=== PATIENT | male | born 1990 | race American Indian/Alaskan Native ===

== ENCOUNTER 2019-02-27 10:05 | Emergency (ER) | payer SELFPAY ==
[2019-02-27 10:26] VITALS: BP 130/76
[2019-02-27 11:37] LABS: Calcium 8.9 mg/dL (8.4-10.2)
[2019-02-27] MEDS ORDERED: NACL 0.9% 1000 ML 1,000 ML IV ONE (11:38)
[2019-02-27 11:39] LABS: Basophils % (Auto) 0.3 % (0.0-1.8); Eosinophils # (Auto) 0.2 K/mm3 (0.0-0.4); Eosinophils % (Auto) 3.2 % (0.0-4.3); Hematocrit 36.3 % (35.5-45.6); Hemoglobin 12.1 gm/dl (11.8-15.2); Lymphocytes # (Auto) 0.7 K/mm3 (1.2-5.4); Lymphocytes % (Auto) 14.3 % (13.4-35.0); Mean Corpuscular HGB Conc 34 % (32-34); Mean Corpuscular Hemoglobin 29 pg (28-32); Mean Corpuscular Volume 86 fl (84-94); Monocytes # (Auto) 0.7 K/mm3 (0.0-0.8); Monocytes % (Auto) 13.5 % (0.0-7.3); Platelet Count 330 K/mm3 (140-440); Red Cell Distribution Width 13.7 % (13.2-15.2)
[2019-02-27 11:56] LABS: Alanine Aminotransferase 12 units/L (7-56); Albumin 3.8 g/dL (3.9-5)
[2019-02-27 12:00] LABS: Bilirubin,Direct < 0.2 mg/dL (0-0.2)
[2019-02-27] MEDS ORDERED: ZOFRAN IV ONE (12:02)
[2019-02-27] MEDS ORDERED: MORPHINE IV ONE (12:02)
--- NOTE | 2019-02-27 12:48 | Emergency Department Report ---
ED General Adult HPI - General Chief complaint: Abdominal Pain Stated complaint: DIARRHEA/VOMIT/DIZZY/MED REFILL Time Seen by Provider: 02/27/19 11:36 Source: patient Mode of arrival: Ambulatory Limitations: No Limitations - History of Present Illness Initial comments: This is a 28 year old man with a history of HIV who was treated at the [facility]. He states he was not compliant with his HIV meds until 3 weeks ago when they were restarted at the clinic. He believes he is "rejecting the medication". He states an hour after taking the new medication he felt weak and dizzy. He states that he developed crampy lower abdominal pain. The symptoms persist; they have been intermittent and really unchanged. He admits to chronic diarrhea. He states he has not returned to the clinic for assessment of these symptoms. He states that he is not going to a chronic pain clinic. However apparently he has had symptoms like this before. He denies active fever. He has not checked his temperature recently. Patient states that he's never had a CAT scan of his abdomen. He states he's never been hospitalized for a serious or AIDS defining infection. He does not know what his CD4 count is. -: week(s) Location: abdomen Radiation: non-radiation Severity scale (0 -10): 8 Quality: other (crampy) Consistency: intermittent Improves with: none Worsens with: none Associated Symptoms: denies other symptoms, other (diarrhea which she states is chronic) Treatments Prior to Arrival: none - Related Data Previous Rx's Medication Instructions Recorded Last Taken Type traMADol [Ultram] 50 mg PO Q6HR PRN #7 tablet 02/27/19 Unknown Rx Allergies Allergy/AdvReac Type Severity Reaction Status Date / Time latex Allergy Hives Verified 02/27/19 10:24 shellfish derived Allergy Anaphylaxis Verified 02/27/19 10:23 ED Review of Systems ROS: Stated complaint: DIARRHEA/VOMIT/DIZZY/MED REFILL Other details as noted in HPI Constitutional: denies: chills, fever Eyes: denies: eye pain, eye discharge, vision change ENT: denies: ear pain, throat pain Respiratory: denies: cough, shortness of breath, wheezing Cardiovascular: denies: chest pain, palpitations Endocrine: no symptoms reported Gastrointestinal: as per HPI, abdominal pain, diarrhea. denies: nausea Genitourinary: denies: urgency, dysuria Musculoskeletal: denies: back pain, joint swelling, arthralgia Skin: denies: rash, lesions Neurological: denies: headache, weakness, paresthesias Psychiatric: denies: anxiety, depression Hematological/Lymphatic: denies: easy bleeding, easy bruising ED Past Medical Hx - Past Medical History Previous Medical History?: Yes Additional medical history: hiv pos - Surgical History Past Surgical History?: No - Social History Smoking Status: Never Smoker Substance Use Type: None - Medications Home Medications: Home Medications Medication Instructions Recorded Confirmed Last Taken Type traMADol [Ultram] 50 mg PO Q6HR PRN #7 tablet 02/27/19 Unknown Rx ED Physical Exam - General Limitations: No Limitations General appearance: alert, in no apparent distress - Head Head exam: Present: atraumatic, normocephalic - Eye Eye exam: Present: normal appearance. Absent: scleral icterus - ENT ENT exam: Present: mucous membranes moist - Neck Neck exam: Present: normal inspection - Respiratory Respiratory exam: Present: normal lung sounds bilaterally. Absent: respiratory distress - Cardiovascular Cardiovascular Exam: Present: regular rate, normal rhythm. Absent: systolic murmur, diastolic murmur, rubs, gallop - GI/Abdominal GI/Abdominal exam: Present: soft, tenderness (subjective discomfort in the lower quadrants appears to be mild on palpation), normal bowel sounds. Absent: distended, guarding, rebound, rigid, organomegaly, mass, bruit, pulsatile mass, hernia - Rectal Rectal exam: Present: deferred - Extremities Exam Extremities exam: Present: normal inspection. Absent: pedal edema, calf tenderness - Back Exam Back exam: Present: normal inspection - Neurological Exam Neurological exam: Present: alert, oriented X3, CN II-XII intact. Absent: motor sensory deficit - Psychiatric Psychiatric exam: Present: normal affect, normal mood - Skin Skin exam: Present: warm, dry, intact, normal color. Absent: rash ED Course Vital Signs 02/27/19 02/27/19 10:25 12:55 Temperature 98.0 F Pulse Rate 80 Respiratory 16 18 Rate Blood Pressure 130/76 O2 Sat by Pulse 99 Oximetry - Reevaluation(s) Reevaluation #1: Patient states pain has resolved. His labs are normal, abdominal exam is normal, vital signs are normal, he does not want a CT scan at this juncture. He will be discharged. He is encouraged to follow-up at his [facility] 02/27/19 14:32 ED Medical Decision Making - Lab Data Result diagrams: 02/27/19 10:55 02/27/19 10:55 Laboratory Results - last 24 hr 02/27/19 02/27/19 02/27/19 10:55 10:55 11:38 WBC 5.2 RBC 4.20 Hgb 12.1 Hct 36.3 MCV 86 MCH 29 MCHC 34 RDW 13.7 Plt Count 330 Lymph % (Auto) 14.3 [place] % (Auto) 13.5 H Eos % (Auto) 3.2 Baso % (Auto) 0.3 Lymph # 0.7 L [place] # 0.7 Eos # 0.2 Baso # 0.0 Seg Neutrophils % 68.7 Seg Neutrophils # 3.5 Sodium 142 Potassium 4.1 Chloride 106.0 Carbon Dioxide 24 Anion Gap 16 BUN 8 L Creatinine 1.5 Estimated GFR 57 BUN/Creatinine Ratio 5 Glucose 86 Calcium 8.9 Magnesium Total Bilirubin 0.50 Direct Bilirubin < 0.2 Indirect Bilirubin 0.3 AST 16 ALT 12 Alkaline Phosphatase 68 Total Protein 8.9 H Albumin 3.8 L Albumin/Globulin Ratio 0.7 02/27/19 11:38 WBC RBC Hgb Hct MCV MCH MCHC RDW Plt Count Lymph % (Auto) [place] % (Auto) Eos % (Auto) Baso % (Auto) Lymph # [place] # Eos # Baso # Seg Neutrophils % Seg Neutrophils # Sodium Potassium Chloride Carbon Dioxide Anion Gap BUN Creatinine Estimated GFR BUN/Creatinine Ratio Glucose Calcium Magnesium 1.90 Total Bilirubin Direct Bilirubin Indirect Bilirubin AST ALT Alkaline Phosphatase Total Protein Albumin Albumin/Globulin Ratio Laboratory Results - last 24 hr 02/27/19 02/27/19 02/27/19 10:55 10:55 11:38 WBC 5.2 RBC 4.20 Hgb 12.1 Hct 36.3 MCV 86 MCH 29 MCHC 34 RDW 13.7 Plt Count 330 Lymph % (Auto) 14.3 [place] % (Auto) 13.5 H Eos % (Auto) 3.2 Baso % (Auto) 0.3 Lymph # 0.7 L [place] # 0.7 Eos # 0.2 Baso # 0.0 Seg Neutrophils % 68.7 Seg Neutrophils # 3.5 Sodium 142 Potassium 4.1 Chloride 106.0 Carbon Dioxide 24 Anion Gap 16 BUN 8 L Creatinine 1.5 Estimated GFR 57 BUN/Creatinine Ratio 5 Glucose 86 Calcium 8.9 Magnesium Total Bilirubin 0.50 Direct Bilirubin < 0.2 Indirect Bilirubin 0.3 AST 16 ALT 12 Alkaline Phosphatase 68 Total Protein 8.9 H Albumin 3.8 L Albumin/Globulin Ratio 0.7 02/27/19 11:38 WBC RBC Hgb Hct MCV MCH MCHC RDW Plt Count Lymph % (Auto) [place] % (Auto) Eos % (Auto) Baso % (Auto) Lymph # [place] # Eos # Baso # Seg Neutrophils % Seg Neutrophils # Sodium Potassium Chloride Carbon Dioxide Anion Gap BUN Creatinine Estimated GFR BUN/Creatinine Ratio Glucose Calcium Magnesium 1.90 Total Bilirubin Direct Bilirubin Indirect Bilirubin AST ALT Alkaline Phosphatase Total Protein Albumin Albumin/Globulin Ratio Critical care attestation.: If time is entered above; I have spent that time in minutes in the direct care of this critically ill patient, excluding procedure time. ED Disposition Clinical Impression: Abdominal pain Qualifiers: Abdominal location: lower abdomen, unspecified Qualified Code(s): R10.30 - Lower abdominal pain, unspecified Diarrhea Qualifiers: Diarrhea type: unspecified type Qualified Code(s): R19.7 - Diarrhea, unspecified Disposition: DC-01 TO HOME OR SELFCARE Is pt being admited?: No Does the pt Need Aspirin: No Condition: Stable Instructions: Abdominal Pain (ED), Acute Diarrhea (ED), Chronic Diarrhea (ED) Additional Instructions: Follow-up with your [facility]. Return should you desire further evaluation. Prescriptions: traMADol [Ultram] 50 mg PO Q6HR PRN #7 tablet PRN Reason: Pain Referrals: PRIMARY CARE, [Referring] - 3-5 Days Time of Disposition: 14:33
[2019-02-27 14:21] LABS: Bilirubin,Urine NEG (Negative); Blood,Urine NEG (Negative); Color,Urine Yellow (Yellow); Mucus,Urine FEW /HPF; Protein,Urine <15 mg/dL mg/dL (Negative); Urobilinogen,Urine < 2.0 mg/dL (<2.0)
[2019-02-27 14:29] LABS: Amphetamine Screen,Urine PRESUMPTIVE NEGATIVE; Benzodiazepines Screen,Urine PRESUMPTIVE NEGATIVE; Cannabinoid Screen,Urine PRESUMPTIVE NEGATIVE; Cocaine Screen,Urine PRESUMPTIVE NEGATIVE; Methadone Screen,Urine PRESUMPTIVE NEGATIVE; Opiate Screen,Urine PRESUMPTIVE NEGATIVE
== END 2019-02-27 14:36 | disposition home or self-care (01) ==
LOC: ED 10:05
DX: R10.30 Lower abdominal pain, unspecified (principal); R19.7 Diarrhea, unspecified
CPT/HCPCS: 36415; 80048; 80076; 80307; 81001; 83735; 85025; 96361; 96374; 96375; 99283; J2270; J2405; J7030